=== PATIENT | female | born 1995 | race Caucasian/White ===

== ENCOUNTER 2019-03-02 10:29 | Emergency (ER) | payer OTHER ==
[~2019-03-02] VITALS: Ht 170.2 cm; Wt 68.2 kg
[2019-03-02 10:36] VITALS: BP 140/82; TEMP 98.9
[2019-03-02 12:00] VITALS: PULSE 68
== END 2019-03-02 12:00 | disposition home or self-care (01) ==
LOC: COL.ER 10:29
DX: S61.211A Laceration without foreign body of left index finger without damage to nail, initial encounter (principal); Z23 Encounter for immunization; W26.8XXA Contact with other sharp object(s), not elsewhere classified, initial encounter; Y92.59 Other trade areas as the place of occurrence of the external cause